=== PATIENT | female | born 1990 | race Caucasian/White ===

== ENCOUNTER 2018-01-23 15:16 | Inpatient (IN) | payer OTHER, MEDICAID ==
[2018-01-23] MEDS: BUTORPHANOL 2 MG INJ IV (16:08)
[2018-01-23] MEDS: OXYTOCIN 30 UNITS/LR 500 ML IV ×2 (16:09→20:18)
[2018-01-23] MEDS: LACTATED RINGER'S 1,000 ML IV* (16:10)
[2018-01-23] MEDS: LIDOCAINE 1% (MPF) 30 ML INJ INJ (16:10)
[2018-01-23 16:57] LABS: WHITE BLOOD COUNT 12.1 10^3/ul (4.8-10.8)
[2018-01-23 16:57] LABS: ABNORMAL IP MESSAGE 1; HEMATOCRIT 20.4 % (37.0-47.0); IMMATURE GRANS #M 0.06 10^3/ul; IMMATURE GRANS % (M) 0.5 %; MEAN CORPUSCULAR HEMOGLOBIN 18.1 pg (29.0-33.0); MEAN CORPUSCULAR HGB CONC 27.9 g/dl (32.0-37.0); MEAN CORPUSCULAR VOLUME 64.8 fl (82.0-101.0); MEAN PLATELET VOLUME 9.4 fl (7.4-10.4); PLATELET COUNT 314 10^3/UL (140-415); RED BLOOD COUNT 3.15 10^6/ul (4.20-5.40); RED CELL DISTRIBUTION WIDTH 19.5 % (11.5-14.5)
[2018-01-23 16:58] LABS: POSITIVE DIFF @See below
[2018-01-23 16:59] LABS: HEMOGLOBIN 5.7 g/dl (12.0-16.0)
[2018-01-23 17:10] LABS: INR 1.01; PROTIME 13.4 Sec (11.9-14.9)
[2018-01-23 17:11] LABS: PARTIAL THROMBOPLASTIN TIME 25.8 Sec (25.0-35.0)
[2018-01-23 17:25] LABS: ADD MAN DIFF? NO
[2018-01-23 17:26] LABS: BASOPHILS % 0.2 % (0.0-2.0); EOSINOPHILS % 0.7 % (0.0-7.0); LYMPHOCYTES # 1.5 10^3/ul (0.8-2.9); LYMPHOCYTES % 12.2 % (15.0-51.0); MONOCYTE # 0.5 10^3/ul (0.3-0.9); NEUTROPHIL # 9.9 10^3/ul (1.6-7.5); NEUTROPHILS % 82.4 % (39.0-77.0)
[2018-01-23 17:27] LABS: PATH REVIEW Y
[2018-01-23 17:44] LABS: HEPATITIS B SURFACE ANTIGEN NEGATIVE (NEGATIVE)
[2018-01-23 17:53] LABS: HIV 1&2 ANTIBODY NEGATIVE (NEGATIVE)
[2018-01-23 18:52] LABS: BARBITURATES Negative (NEGATIVE); BENZODIAZEPINES Negative (NEGATIVE); CANNABINOIDS Negative (NEGATIVE); COCAINE Negative (NEGATIVE); OPIATES Negative (NEGATIVE)
[2018-01-23 18:53] LABS: AMPHETAMINE/METHAMPHETAMINE Positive (NEGATIVE)
[2018-01-23 19:45] LABS: IMMEDIATE SPIN CROSSMATCH 1 2
[2018-01-23] MEDS: SOD CHLORIDE 0.9% 1,000 ML IV (20:18)
[2018-01-23 21:47] LABS: RAPID PLASMA REAGIN NONREACTIVE (NR)
[2018-01-23] MEDS ORDERED: CARBOPROST 250 MCG INJ IM (23:00)
[2018-01-23] MEDS ORDERED: ONDANSETRON 4 MG INJ IV (23:00)
[2018-01-23] MEDS ORDERED: NACL 0.9% 3 ML SYG IV (23:00)
[2018-01-23] MEDS ORDERED: ZOLPIDEM 5 MG TAB PO (23:00)
[2018-01-23] MEDS ORDERED: DIPHENHYDRAMINE 25 MG CAP PO (23:00)
[2018-01-23] MEDS ORDERED: morphine 2 MG INJ IV (23:00)
[2018-01-23] MEDS ORDERED: MISOPROSTOL 200 MCG TAB PR (23:00)
[2018-01-23] MEDS ORDERED: OXYTOCIN 30 UNITS/LR 500 ML IV (23:00)
[2018-01-23] MEDS: WITCH HAZEL/GLYCERIN PAD PR (23:34)
[2018-01-23] MEDS: HYDROCODONE/APAP (5/325) TAB PO (23:34)
[2018-01-24] MEDS ORDERED: IBUPROFEN 600 MG TAB PO
[2018-01-24] MEDS: OXYTOCIN 30 UNITS/LR 500 ML IV (00:49)
[2018-01-24 01:18] LABS: ADD MAN DIFF? NO
[2018-01-24 01:21] LABS: WHITE BLOOD COUNT 12.1 10^3/ul (4.8-10.8)
[2018-01-24 01:21] LABS: ABNORMAL IP MESSAGE 1; BASOPHILS % 0.2 % (0.0-2.0); EOSINOPHILS # 0.1 10^3/ul (0.0-0.5); EOSINOPHILS % 0.7 % (0.0-7.0); HEMATOCRIT 22.6 % (37.0-47.0); IMMATURE GRANS #M 0.06 10^3/ul; IMMATURE GRANS % (M) 0.5 %; LYMPHOCYTES # 2.2 10^3/ul (0.8-2.9); LYMPHOCYTES % 18.3 % (15.0-51.0); MEAN CORPUSCULAR HEMOGLOBIN 22.2 pg (29.0-33.0); MEAN CORPUSCULAR VOLUME 71.7 fl (82.0-101.0); MEAN PLATELET VOLUME 9.3 fl (7.4-10.4); MONOCYTE # 0.5 10^3/ul (0.3-0.9); MONOCYTES % 4.3 % (0.0-11.0); NEUTROPHIL # 9.2 10^3/ul (1.6-7.5); NUCLEATED RED BLOOD CELLS% 0.2 /100WBC (0.0-0.0); PLATELET COUNT 253 10^3/UL (140-415); RED BLOOD COUNT 3.15 10^6/ul (4.20-5.40); RED CELL DISTRIBUTION WIDTH 25.3 % (11.5-14.5)
[2018-01-24 01:23] LABS: POSITIVE DIFF @See below
[2018-01-24] MEDS: SOD CHLORIDE 0.9% 1,000 ML IV ×3 (04:30→20:30)
[2018-01-24 05:46] LABS: HEMATOCRIT 23.4 % (37.0-47.0); HEMOGLOBIN 7.2 g/dl (12.0-16.0)
[2018-01-24] MEDS: SENNA/DOCUSATE NA (8.6MG/50MG) TAB PO ×2 (09:21→21:27)
[2018-01-24] MEDS: BENZOCAINE 20% 56 ML SPRAY TOP (12:07)
[2018-01-24] MEDS: LACTATED RINGER'S 1,000 ML IV* (16:00)
[2018-01-24] MEDS: HYDROCODONE/APAP (5/325) TAB PO (18:24)
[2018-01-25] MEDS: SOD CHLORIDE 0.9% 1,000 ML IV (04:30)
[2018-01-25] MEDS: HYDROCODONE/APAP (5/325) TAB PO (07:24)
[2018-01-25] MEDS: LACTATED RINGER'S 1,000 ML IV* ×2 (08:00)
[2018-01-25] MEDS: VARICELLA VACCINE LIVE/PF 1,350 UNIT/0.5 ML ML SC* (09:00)
[2018-01-25] MEDS: MEASLES,MUMPS,RUBELLA VACCINE INJ SC* (09:00)
[2018-01-25] MEDS: SENNA/DOCUSATE NA (8.6MG/50MG) TAB PO (09:22)
[2018-01-25] MEDS: WITCH HAZEL/GLYCERIN PAD PR (10:22)
[2018-01-25] MEDS: DIPHTH/TET/ACEL PERTUSS (ADULT) 0.5 ML VIAL IM* (11:26)
[2018-01-26 12:16] LABS: RUBELLA ANTIBODY - IGG <0.90 index; RUBELLA ANTIBODY - IGM <20.00 AU/mL
[2018-01-27 03:52] LABS: URINE DRUG SCREEN RESULT DRUG(S) DETECTED:
== END 2018-01-25 15:00 | disposition home or self-care (01) | DRG 774 ==
LOC: L-D 15:16 → PP1 22:48
PROVIDERS: Obstetrics & Gynecology Obstetrics
PROC: 10E0XZZ Delivery of Products of Conception, External Approach (ICD-10-PCS; principal; 2018-01-23)
PROC: 0HQ9XZZ Repair Perineum Skin, External Approach (ICD-10-PCS; 2018-01-23)
PROC: 0UQMXZZ Repair Vulva, External Approach (ICD-10-PCS; 2018-01-23)
PROC: 30233N1 Transfusion of Nonautologous Red Blood Cells into Peripheral Vein, Percutaneous Approach (ICD-10-PCS; 2018-01-23)
PROC: 3E0234Z Introduction of Serum, Toxoid and Vaccine into Muscle, Percutaneous Approach (ICD-10-PCS; 2018-01-25)
DX: O72.2 Delayed and secondary postpartum hemorrhage (principal); O70.0 First degree perineal laceration during delivery; O90.81 Anemia of the puerperium; D64.9 Anemia, unspecified; Z23 Encounter for immunization
CPT/HCPCS: 36430; 59414; 80307; 85014; 85018; 85025; 85610; 85730; 86592; 86703; 86762; 86850; 86900; 86901; 86920; 87340; 90715